=== PATIENT | female | born 1950 | race Hispanic/Latino ===

== ENCOUNTER 2022-02-02 07:56 | Outpatient (CLI) | payer OTHER | END 2022-02-02 07:57 | disposition home or self-care (01) | LOC: BICULT 07:56 | PROVIDERS: ATTEND Internal Medicine | DX: R09.89 Other specified symptoms and signs involving the circulatory and respiratory systems (principal) | CPT/HCPCS: 93880 ==

== ENCOUNTER 2024-10-17 08:52 | Outpatient (CLI) | payer OTHER | END 2024-10-17 08:53 | disposition home or self-care (01) | LOC: BICRAD 08:52 | PROVIDERS: ATTEND Family Medicine | DX: S82.302D Unspecified fracture of lower end of left tibia, subsequent encounter for closed fracture with routine healing (principal); Z96.698 Presence of other orthopedic joint implants ==